=== PATIENT | male | born 1970 | race Caucasian/White ===

== ENCOUNTER 2019-04-12 12:23 | Emergency (ER) | payer OTHER ==
[~2019-04-12] VITALS: Ht 172.7 cm; Wt 70.3 kg
[2019-04-12] MEDS ORDERED: SODIUM CHLORIDE 0.9% 1,000 ML IV ONE (13:02)
--- NOTE | 2019-04-12 13:12 | NUR ---
Dr. Dennis at bedside, patient reports improvement in symptoms, able to swallow water without pain or difficulty. Per Dr. Dennis, hold IV start and medication pending esophagram, verbal order read back and verified. Patient aware of plan of care.
[2019-04-12] MEDS ORDERED: ONDANSETRON 2MG/ML, 2ML IVPush ONE (13:30)
[2019-04-12] MEDS ORDERED: GLUCAGON 1 MG IVPush ONE (13:30)
[2019-04-12] MEDS ORDERED: SODIUM CHLORIDE FLUSH 10ML SYR IVF ONE (13:30)
--- NOTE | 2019-04-12 14:07 | NUR ---
Patient transported for esophagram at this time.
[2019-04-12 15:19] VITALS: BP 133/85
--- NOTE | 2019-04-12 15:19 | NUR ---
Plan of care updated, results posted, waiting for results from provider. Questions answered, call davis within reach.
--- NOTE | 2019-04-12 15:57 | NUR ---
Patient/Caregiver given discharge instructions and they have confirmed that they understand the instructions. Patient ambulatory with steady gait.
== END 2019-04-12 16:00 | disposition home or self-care (01) ==
LOC: ED 15:50
DX: K20.0 Eosinophilic esophagitis (principal)
CPT/HCPCS: 74220; 99283